=== PATIENT | female | born 1965 ===

== ENCOUNTER 2017-06-24 14:59 | Emergency (ER) | payer BC, OTHER ==
[2017-06-24 15:11] VITALS: BP 130/77; PULSE 86; RESP 16; TEMP 98.3; O2SAT 97
--- NOTE | 2017-06-24 16:41 | ED PDOC ---
HPI: Back Time Seen by Provider: 06/24/17 15:33 Chief Complaint (Nursing): Abdominal Pain Chief Complaint (Provider): LEFT flank pain History Per: Patient Onset/Duration Of Symptoms: Days (2), Gradual, Persistent Quality Of Discomfort: Aching Additional Complaint(s): LEFT sided flank pain for 2 days, started gradually with no specific movement or injury, worsening since onset, minimal relief with motrin. Pain worsens w deep breath, cough or sneeze. Reports darker urine but no dysuria or frequency. Also concerned that she had tingling to left leg and arm transiently. PMD None Past Medical History Reviewed: Historical Data, Nursing Documentation, Vital Signs Vital Signs: Last Vital Signs Temp 98.3 F 06/24/17 15:09 Pulse 86 06/24/17 15:09 Resp 16 06/24/17 15:09 BP 130/77 06/24/17 15:09 Pulse Ox 97 06/24/17 15:09 - Medical History PMH: No Chronic Diseases - Surgical History Other surgeries: Hysterectomy - Family History Family History: States: No Known Family Hx - Social History Current smoker - smoking cessation education provided: No - Home Medications Home Medications: Ambulatory Orders Medication Instructions Recorded Cyclobenzaprine [Cyclobenzaprine 10 mg PO TID PRN #10 tab 06/24/17 HCl] Lidocaine 5% [Lidoderm] 1 ea TD DAILY PRN #20 patch 06/24/17 Naproxen [Naprosyn] 1 tab PO BID PRN #30 tab 06/24/17 - Allergies Allergies/Adverse Reactions: Allergies Allergy/AdvReac Type Severity Reaction Status Date / Time No Known Allergies Allergy Verified 06/24/17 15:10 Review of Systems ROS Statement: Except As Marked, All Systems Reviewed And Found Negative (and as per HPI) Constitutional: Negative for: Fever, Chills Cardiovascular: Negative for: Chest Pain Respiratory: Negative for: Cough Gastrointestinal: Negative for: Abdominal Pain Genitourinary Female: Negative for: Dysuria, Frequency, Hematuria Musculoskeletal: Positive for: Back Pain Neurological: Negative for: Weakness, Numbness Physical Exam - Reviewed Nursing Documentation Reviewed: Yes Vital Signs Reviewed: Yes - Physical Exam Appears: Positive for: Non-toxic, In Acute Distress Head Exam: Positive for: ATRAUMATIC, NORMOCEPHALIC Skin: Positive for: Warm, Dry Eye Exam: Positive for: EOMI, PERRL ENT: Negative for: Pharyngeal Erythema, Tonsillar Exudate Neck: Positive for: Painless ROM, Supple Cardiovascular/Chest: Positive for: Regular Rate, Rhythm, Other (tenderness LEFT posterior inferior ribs). Negative for: Murmur Respiratory: Positive for: Normal Breath Sounds. Negative for: Wheezing Gastrointestinal/Abdominal: Positive for: Soft. Negative for: Tenderness Back: Positive for: L CVA Tenderness. Negative for: Vertebral Tenderness, Decreased ROM, Muscle Spasm Extremity: Positive for: Normal ROM. Negative for: Deformity Lymphatic: Negative for: Adenopathy Neurologic/Psych: Positive for: Alert. Negative for: Motor/Sensory Deficits - Laboratory Results Result Diagrams: 06/24/17 17:18 06/24/17 17:18 - ECG O2 Sat by Pulse Oximetry: 97 Pulse Ox Interpretation: Normal - Progress ED Course And Treament: 52yo health woman with flank pain Ddx include but not limited to renal colic, pyelonephritis, muscle strain, rib strain, occult rib fracture. Accession No. : [id number] Patient Name / ID : BONNY JAMES / [id number] Exam Date : 06/24/2017 16:39:41 ( Approved ) Study Comment : Sex / Age : F / 52Y Creator : Gerson Diego MD Dictator : Gerson Diego MD Director Service : Tube Heater : Gerson Diego MD Approver2 : Report Date : 06/24/2017 17:22:25 My Comment : PROCEDURE: CT Abdomen and Pelvis without intravenous contrast HISTORY: LEFT flank pain COMPARISON: None. TECHNIQUE: Unenhanced study. Neither oral nor intravenous contrast administered. Radiation dose: Total exam DLP = 541.77 mGy-cm. This CT exam was performed using one or more of the following dose reduction techniques: Automated exposure control, adjustment of the mA and/or kV according to patient size, and/or use of iterative reconstruction technique. FINDINGS: LOWER THORAX: Unremarkable. LIVER: Unremarkable. No gross lesion or ductal dilatation. GALLBLADDER AND BILE DUCTS: Unremarkable. PANCREAS: Unremarkable. No gross lesion or ductal dilatation. SPLEEN: Unremarkable. ADRENALS: Unremarkable. No mass. KIDNEYS AND URETERS: Unremarkable. No hydronephrosis. No solid mass. VASCULATURE: Unremarkable. No aortic aneurysm. BOWEL: Unremarkable. No obstruction. No gross mural thickening. APPENDIX: Unremarkable. Normal appendix. PERITONEUM: Unremarkable. No free fluid. No free air. LYMPH NODES: Unremarkable. No enlarged lymph nodes. BLADDER: Unremarkable. REPRODUCTIVE: Unremarkable. BONES: No acute fracture. OTHER FINDINGS: None. IMPRESSION: No significant or acute findings to account for/ related to the clinical presentation. Accession No. : [id number] Patient Name / ID : BONNY JAMES / [id number] Exam Date : 06/24/2017 16:43:11 ( Approved ) Study Comment : Sex / Age : F / 52Y Creator : Gerson Diego MD Dictator : Gersno Diego MD Director Service : Tube Heater : Gerson Diego MD Approver2 : Report Date : 06/24/2017 18:08:30 My Comment : PROCEDURE: Radiographs of the Chest and Left Ribs. HISTORY: LEFT sided Pain. No history of recent/ related trauma provided COMPARISON: None available. TECHNIQUE: Frontal radiograph of the chest and multiple oblique radiographs of the left ribs were obtained. FINDINGS: LEFT RIBS: No fracture or focal lesion visualized. LUNGS: Clear. PLEURA: No pneumothorax or pleural fluid. CARDIOVASCULAR: No radiographic findings to suggest acute or significant cardiovascular disease. Prominent central pulmonary arteries consistent with pulmonary arterial hypertension. OTHER FINDINGS: None. IMPRESSION: No active pulmonary disease. No displaced left rib fractures. Condition: Improved Disposition - Clinical Impression Clinical Impression: Flank pain Counseled Patient/Family Regarding: Studies Performed, Diagnosis, Need For Followup, Rx Given - Disposition Referrals: [facility] [Outside] (FOLLOW UP WITH YOUR DOCTOR OR [employer] [facility] IN 2-3 DAYS TO SEE HOW YOU ARE DOING) Disposition: Routine/Home Disposition Time: 17:30 Condition: IMPROVED Prescriptions: Cyclobenzaprine [Cyclobenzaprine HCl] 10 mg PO TID PRN #10 tab PRN Reason: muscle spasm Lidocaine 5% [Lidoderm] 1 ea TD DAILY PRN #20 patch PRN Reason: PAIN Naproxen [Naprosyn] 1 tab PO BID PRN #30 tab PRN Reason: Pain Instructions: Flank Pain (ED) Forms: [facility] [facility] (Maltese), [facility] ED School/Work Excuse
--- NOTE | 2017-06-24 17:23 | CT ---
PROCEDURE: CT Abdomen and Pelvis without intravenous contrast HISTORY: LEFT flank pain COMPARISON: None. TECHNIQUE: Unenhanced study. Neither oral nor intravenous contrast administered. Radiation dose: Total exam DLP = 541.77 mGy-cm. This CT exam was performed using one or more of the following dose reduction techniques: Automated exposure control, adjustment of the mA and/or kV according to patient size, and/or use of iterative reconstruction technique. FINDINGS: LOWER THORAX: Unremarkable. LIVER: Unremarkable. No gross lesion or ductal dilatation. GALLBLADDER AND BILE DUCTS: Unremarkable. PANCREAS: Unremarkable. No gross lesion or ductal dilatation. SPLEEN: Unremarkable. ADRENALS: Unremarkable. No mass. KIDNEYS AND URETERS: Unremarkable. No hydronephrosis. No solid mass. VASCULATURE: Unremarkable. No aortic aneurysm. BOWEL: Unremarkable. No obstruction. No gross mural thickening. APPENDIX: Unremarkable. Normal appendix. PERITONEUM: Unremarkable. No free fluid. No free air. LYMPH NODES: Unremarkable. No enlarged lymph nodes. BLADDER: Unremarkable. REPRODUCTIVE: Unremarkable. BONES: No acute fracture. OTHER FINDINGS: None. IMPRESSION: No significant or acute findings to account for/ related to the clinical presentation.
[2017-06-24 17:28] LABS: BASO % 0.4 % (0.0-2.0); EOS # 0.2 K/uL (0.0-0.7); EOS % 2.9 % (0.0-4.0); LYMPH % 35.9 % (20.0-40.0); MEAN CELL VOLUME 92.5 fl (81.0-99.0); MEAN CORPUSCULAR HEMOGLOBIN 30.3 pg (27.0-31.0); MEAN CORPUSCULAR HGB CONC 32.8 g/dL (33.0-37.0); MEAN PLATELET VOLUME 7.8 fl (7.2-11.7); MONO # 0.8 K/uL (0.0-0.8); MONO % 13.4 % (0.0-10.0); NEUT # 2.7 K/uL (1.8-7.0); NEUT % 47.4 % (50.0-75.0); NRBC % 0.1 % (0.0-0.0); RED CELL DISTRIBUTION WIDTH 13.5 % (11.5-14.5); WHITE BLOOD COUNT 5.6 K/uL (4.8-10.8)
[2017-06-24 17:40] LABS: ALB/GLOB RATIO 1.4 (1.0-2.1); ALKALINE PHOSPHATASE 75 U/L (38-126); ALT/SGPT 29 U/L (9-52); AST/SGOT 28 U/L (14-36); BILIRUBIN,TOTAL 0.3 mg/dl (0.2-1.3); BLOOD UREA NITROGEN 11 mg/dl (7-17); CALCIUM 8.6 mg/dL (8.4-10.2); CARBON DIOXIDE 26 mmol/L (22-30); CHLORIDE 105 mmol/L (98-107); GFR AFRICAN-AMERICAN > 60; GLUCOSE,RANDOM 91 mg/dL (65-105); LIPASE 124 U/L (23-300); SODIUM 142 mmol/l (132-148); TOTAL PROTEIN 7.5 G/DL (6.3-8.2)
--- NOTE | 2017-06-24 18:10 | RAD ---
PROCEDURE: Radiographs of the Chest and Left Ribs. HISTORY: LEFT sided Pain. No history of recent/ related trauma provided COMPARISON: None available. TECHNIQUE: Frontal radiograph of the chest and multiple oblique radiographs of the left ribs were obtained. FINDINGS: LEFT RIBS: No fracture or focal lesion visualized. LUNGS: Clear. PLEURA: No pneumothorax or pleural fluid. CARDIOVASCULAR: No radiographic findings to suggest acute or significant cardiovascular disease. Prominent central pulmonary arteries consistent with pulmonary arterial hypertension. OTHER FINDINGS: None. IMPRESSION: No active pulmonary disease. No displaced left rib fractures.
== END 2017-06-24 19:03 | disposition home or self-care (01) ==
LOC: H.ER 14:59
DX: R10.9 Unspecified abdominal pain (principal); R07.1 Chest pain on breathing
CPT/HCPCS: 71101; 74176; 80053; 81025; 83690; 85025; 96374; 99284; J1885